=== PATIENT | male | born 1990 | race Caucasian/White ===

== ENCOUNTER 2017-08-05 05:35 | Emergency (ER) | payer BC ==
[2017-08-05] MEDS ORDERED: methylPREDNISolone Sodium Succinate 125 MG/2 ML SDV IM STA (06:15)
--- NOTE | 2017-08-05 06:19 | EDM.PDOC ---
ED HPI GENERAL MEDICAL PROBLEM - General Chief Complaint: General Stated Complaint: left ear pain Time Seen by Provider: 08/05/17 06:00 Source of Information: Reports: Patient History Limitations: Reports: No Limitations - History of Present Illness INITIAL COMMENTS - FREE TEXT/NARRATIVE: Pramod is a 26 yo male who presents to the ER with complains of left ear pain. He states he woke up this morning with severe left ear pain. Had a sore throat the last few days with a a fever. Isn't sure if he got a bug in his ear or what. denies any other contributory symptoms. No recent swimming. Onset: Today Left Ear Pain Score (Numeric/FACES): 3 - Related Data Allergies Allergy/AdvReac Type Severity Reaction Status Date / Time No Known Allergies Allergy Verified 08/05/17 05:42 Home Meds: Home Meds . [No Known Home Meds] 04/20/13 [History] Past Medical History - Past Health History Medical/Surgical History: Denies Medical/Surgical History Social & Family History - Family History Family Medical History: Noncontributory - Tobacco Use Smoking Status *Q: Never Smoker ED ROS GENERAL - Review of Systems Review Of Systems: ROS reveals no pertinent complaints other than HPI. HEENT: Reports: Ear Pain (left), Throat Pain. Denies: Ear Discharge, Nose Pain , Sinus Problem Respiratory: Reports: No Symptoms Cardiovascular: Reports: No Symptoms ED EXAM, GENERAL - Physical Exam Exam: See Below Exam Limited By: No Limitations General Appearance: Alert, No Apparent Distress Eye Exam: Bilateral Eye: Normal Inspection Ear Exam: Left Ear: Erythema, TM Dull, TM Red, TM Bulging Nose: Normal Inspection, No Blood, Clear Rhinorrhea Throat/Mouth: No Airway Compromise, Inflammation, Other (tonsillar erythema with exudate noted) Head: Atraumatic, Normocephalic Neck: Normal Inspection, Supple. No: Lymphadenopathy (L), Lymphadenopathy (R) Course - Vital Signs Last Recorded V/S: Last Vital Signs Temp 98.2 F 08/05/17 05:43 Pulse 84 08/05/17 05:43 Resp 18 08/05/17 05:43 BP 129/82 08/05/17 05:43 Pulse Ox 97 08/05/17 05:43 Departure - Departure Time of Disposition: 06:20 Disposition: Home, Self-Care 01 Clinical Impression: Otitis externa of left ear Qualifiers: Otitis externa type: diffuse Chronicity: acute Qualified Code(s): H60.312 - Diffuse otitis externa, left ear Acute tonsillitis Qualifiers: Pharyngitis/tonsillitis etiology: unspecified etiology Qualified Code(s): J03.90 - Acute tonsillitis, unspecified - Discharge Information Instructions: Ear Drops, Adult, [id number], Tonsillitis, [id number] Referrals: Jas Medrano MD [Primary Care Provider] - Forms: ED Department Discharge Additional Instructions: 1) Ciprodex ear drops - 4 drops in left hear twice a day for 7 days. 2) Amoxicillin 875mg - 1 tablet twice a day for 7 days 3) Alternate Tylenol and ibuprofen for discomfort every 3-4 hours. 4) Refrain from putting any qtips, etc... in left ear 5) Follow up if any concerns. - Problem List & Annotations (1) Acute tonsillitis SNOMED Code(s): 63102051 Code(s): J03.90 - ACUTE TONSILLITIS, UNSPECIFIED Status: Acute Current Visit: Yes Qualifiers: Pharyngitis/tonsillitis etiology: unspecified etiology Qualified Code(s): J03.90 - Acute tonsillitis, unspecified (2) Otitis externa of left ear SNOMED Code(s): 8276056 Code(s): H60.92 - UNSPECIFIED OTITIS EXTERNA, LEFT EAR Status: Acute Current Visit: Yes Qualifiers: Otitis externa type: diffuse Chronicity: acute Qualified Code(s): H60.312 - Diffuse otitis externa, left ear - Assessment/Plan Plan: See additional instructions.
== END 2017-08-05 06:30 | disposition home or self-care (01) ==
LOC: CC.ED 05:35
DX: H60.312 Diffuse otitis externa, left ear (principal); J03.90 Acute tonsillitis, unspecified
CPT/HCPCS: 96372; 99282; J2930

== ENCOUNTER 2022-07-22 21:41 | Emergency (ER) | payer BC ==
[2022-07-22] MEDS ORDERED: Ibuprofen 200 MG Tab PO ONE (22:20)
== END 2022-07-22 22:25 | disposition home or self-care (01) ==
LOC: SUPCPDRO 21:41 → CC.ED 21:41
DX: S93.401A Sprain of unspecified ligament of right ankle, initial encounter (principal); W18.39XA Other fall on same level, initial encounter
CPT/HCPCS: 73610-RT; 99283; A9270-GY